=== PATIENT | female | born 1955 | race Caucasian/White ===

== ENCOUNTER 2017-09-27 11:16 | Emergency (ER) | payer OTHER ==
[~2017-09-27] VITALS: Ht 165.1 cm; Wt 90.7 kg
[~2017-09-27 11:16] MED LIST: ADULT LOW DOSE81 MG; ANASTROZOLE1 MG; BISOPROLOL FUMA1 TA3; CALCIUM1 TA1; FISH OIL 1,2001 EACH; FUROSEMIDE; IBUPROFEN200 M1; MULTI-VITAMIN1 EAC2; TAMOXIFEN CITRA; VENLAFAXINE HCL75 M1
--- OUTSIDE RECORDS SUMMARY | 2017-09-27 11:19 | External Medical Summary Rpt | CCD ---
Author Author [employer] Organization [employer] Address Unknown Phone Unavailable Purpose Continuity of Care Document - through 2016
--- OUTSIDE RECORDS SUMMARY | 2017-09-27 11:19 | External Medical Summary Rpt | CCD ---
Author Author , SHELLY Organization SHELLY Address Unknown Phone .[employer] Purpose Continuity of Care Document - 04-25-2017 through 2016 Results Labs Lab Lab Date Result Refere Interp Status Commen Order Detail nces retati t Range on Urinalysis dipstick W Reflex Microscopic panel in Urine (04-25-2017 08:30) Bacteri 3+ O complet a 017 ed [Presen 08:30 ce] in Urine sedimen t by Light microsc opy Erythro 04-25-2 5-10 0 complet cytes 017 ed [Presen 08:30 ce] in Urine sedimen t by Light microsc opy Epithel 04-25- 5-10 0#/hp complet ial 017 f - ed cells.s 08:30 5#/hp quamous f [Presen ce] in Urine sedimen t by Microsc opy high power field Leukocy 04-25- 5-10 O complet eddie 017 wbc/hpf ed [#/volu 08:30 me] in Urine Urinalysis dipstick W Reflex Microscopic panel in Urine (04-25-2017 08:30) Appeara CLEAR CLEAR complet nce of 017 ed Urine 08:30 Bilirub NEGATIV NEG complet in 017 E ed [Presen 08:30 ce] in Urine by Test strip Erythro 04-25-2 2+ NEG Abnorma complet cytes 017 l ed [Presen 08:30 ce] in Urine Color YELLOW YELLOW complet of 017 ed Urine 08:30 Ketones 2 NEGATIV NEG complet 017 E ed [Presen 08:30 ce] in Urine by Automat ed test strip Mucus 04-25-2 2+ NEG Abnorma complet [Presen 017 l ed ce] in 08:30 Urine sedimen t by Light microsc opy Nitrite NEGATIV NEG complet 017 E ed [Presen 08:30 ce] in Urine by Test strip Urobili 05-26-2 0.2 NEG complet nogen 017 ed [Presen 08:30 ce] in Urine by Test strip
--- OUTSIDE RECORDS SUMMARY | 2017-09-27 11:19 | External Medical Summary Rpt | CCD ---
Author Author , SHELLY Organization SHELLY Address Unknown Phone [email or web address] Purpose Continuity of Care Document - 04-25-2017 [...]
--- OUTSIDE RECORDS SUMMARY | 2017-09-27 11:20 | External Medical Summary Rpt | CCD ---
Demographics Preferred Language Macedonian Marital Status Unknown Judaism Affiliation Unknown Race Unknown Ethnic Group Unknown Author Author , SHELLY BRAVO Address Unknown Phone Immunization Unable to retrieve immunization data due to connection failure with Immunization Registry. Please try again later.
--- OUTSIDE RECORDS SUMMARY | 2017-09-27 11:20 | External Medical Summary Rpt | CCD ---
Demographics Preferred Language Polish Marital Status Unknown Congregation Affiliation Unknown Race Unknown Ethnic Group Unknown Author Author , SHELLY BRAVO Address Unknown Phone Immunization Unable to retrieve immunization data due to connection failure with Immunization Registry. Please try again later.
--- OUTSIDE RECORDS SUMMARY | 2017-09-27 11:21 | External Medical Summary Rpt ---
Author Author SHELLY Mendoza, [employer] Organization [employer] Address Unknown Phone Unavailable Results Urinalysis dipstick W Reflex Microscopic panel in Urine Observa Value Referen Units Interpr Notes Date tion ce etation Range Appeara CLEAR CLEAR No No No April 25 nce of informa informa informa 2016 Urine tion in tion in tion in 8:30 AM source source source data data data Bacteri 3+ O No No No April 25 a informa informa informa 2016 [Presen tion in tion in tion in 8:30 AM ce] in source source source Urine data data data sedimen t by Light microsc opy Bilirub NEGATIV NEG No No No April 25 in E informa informa informa 2016 [Presen tion in tion in tion in 8:30 AM ce] in source source source Urine data data data by Test strip Erythro 2+ NEG No Abnorma No April 25 cytes informa l informa 2016 [Presen tion in tion in 8:30 AM ce] in source source Urine data data Color YELLOW YELLOW No No No April 25 of informa informa informa 2016 Urine tion in tion in tion in 8:30 AM source source source data data data Glucose NEG No No No April 25 [Mass/vol informati informati informati 2016 8:30 ume] in on in on in on in AM Urine by source source source Test data data data strip Ketones NEGATIV NEG mg/dL No No April 25 E informa informa 2016 [Presen tion in tion in 8:30 AM ce] in source source Urine data data by Automat ed test strip Mucus 2+ NEG No Abnorma No April 25 [Presen informa l informa 2016 ce] in tion in tion in 8:30 AM Urine source source sedimen data data t by Light microsc opy Mucus 2+ OCC No No No April 25 [Presen informa informa informa 2016 ce] in tion in tion in tion in 8:30 AM Urine source source source sedimen data data data t by Light microsc opy Nitrite NEGATIV NEG No No No April 25 E informa informa informa 2016 [Presen tion in tion in tion in 8:30 AM ce] in source source source Urine data data data by Test strip pH of 5.0 - 8.5 No Normal No April 25 Urine informati informati 2016 8:30 on in on in AM source source data data Protein NEG mg/dL No No April 25 [Mass/vol informati informati 2016 8:30 ume] in on in on in AM Urine by source source Automated data data test strip Erythro 5-10 0 rbc/hpf No No April 25 cytes informa informa 2016 [Presen tion in tion in 8:30 AM ce] in source source Urine data data sedimen t by Light microsc opy Specific 1.005 - No Normal No April 25 gravity 1.030 informati informati 2016 8:30 of Urine on in on in AM source source data data Epithel 5-10 0 - 5 #/hpf No No April 25 ial informa informa 2016 cells.s tion in tion in 8:30 AM quamous source source data data [Presen ce] in Urine sedimen t by Microsc opy high power field Urobili 0.2 NEG E.U./dL No No April 25 nogen informa informa 2016 [Presen tion in tion in 8:30 AM ce] in source source Urine data data by Test strip Leukocy [5 O wbc/hpf No No April 25 eddie wbc/hpf informa informa 2016 [#/volu ; 10 tion in tion in 8:30 AM me] in wbc/hpf source source Urine ] data data Urinalysis dipstick W Reflex Microscopic panel in Urine Observa Value Referen Units Interpr Notes Date tion ce etation Range Appeara CLEAR CLEAR No No No April 25 nce of informa informa informa 2016 Urine tion in tion in tion in 8:30 AM source source source data data data Bilirub NEGATIV NEG No No No April 25 in E informa informa informa 2016 [Presen tion in tion in tion in 8:30 AM ce] in source source source Urine data data data by Test strip Erythro 2+ NEG No Abnorma No April 25 cytes informa l informa 2016 [Presen tion in tion in 8:30 AM ce] in source source Urine data data Color YELLOW YELLOW No No No April 25 of informa informa informa 2016 Urine tion in tion in tion in 8:30 AM source source source data data data Glucose NEG No No No April 25 [Mass/vol informati informati informati 2016 8:30 ume] in on in on in on in AM Urine by source source source Test data data data strip Ketones NEGATIV NEG mg/dL No No April 25 E informa informa 2016 [Presen tion in tion in 8:30 AM ce] in source source Urine data data by Automat ed test strip Mucus 2+ NEG No Abnorma No April 25 [Pres informa l informa 2016 ce] in tion in tion in 8:30 AM Urine source source sedimen data data t by Light microsc opy Nitrite NEGATIV NEG No No No April 25 E informa informa informa 2016 [Presen tion in tion in tion in 8:30 AM ce] in source source source Urine data data data by Test strip pH of 5.0 - 8.5 No Normal No April 25 Urine informati informati 2016 8:30 on in on in AM source source data data Protein NEG mg/dL No No April 25 [Mass/vol informati informati 2016 8:30 ume] in on in on in AM Urine by source source Automated data data test strip Specific 1.005 - No Normal No April 25 gravity 1.030 informati informati 2016 8:30 of Urine on in on in AM source source data data Urobili 0.2 NEG E.U./dL No No April 25 nogen informa informa 2016 [Presen tion in tion in 8:30 AM ce] in source source Urine data data by Test strip
[2017-09-27 11:36] VITALS: BP 143/73
[2017-09-27] MEDS ORDERED: ZITHROMAX Z-PA250 M2 PO (11:40)
[2017-09-27] MEDS ORDERED: FLONASE ALLERG9.9 ML NS (11:40)
--- NOTE | 2017-09-27 11:43 | Urgent Treatment Center Report ---
History of Present Issue Date/Time Seen by Provider 09/27/17 1134 Visit Reason Pt arrived:Walked Presenting Problem:PT C/O CHEST CONGESTION AND COUGH Location if Accident: Onset of symptoms date/time:/ or onset unknown for:MEDICAL HX UNKNOWN Have you (or family members/close friends) recently traveled outside the [place]? N If Yes, where/when: Have you had exposure to infectious disease within the past month? TB? Other? Specify: Source patient, RN notes reviewed Exam Limitations no limitations Comment 62-year-old female presents for green nasal congestion, sinus pressure, in coughing up green sputum. Patient states she's had a cold for over a week and she's been treatment with [id number] medicine and woke up this morning and in the color had changed to green and it feels like it has moved to her chest. ALLERGIES Coded Allergies: No Known Allergies (11/04/16) Home Medications Reported Medications Tamoxifen Citrate Venlafaxine Hydrochloride (Venlafaxine XR) Furosemide BISOPROLOL FUMARATE/HCTZ (Bisoprolol-Hctz 5-6.25 MG Tab) CALCIUM CARBONATE/VITAMIN D3 (Calcium + Vitamin D Tablet) Fish Oil/Dha/Epa (Fish Oil 1,200 MG Fish Oil) Aspirin (Adult Low Dose Aspirin EC) History Medical History General CAD? No Angina: No AL: No Hypertension? Yes Hyperlipidemia? Yes CHF? No DVT? No PE? No COPD? No Asthma? No Anemia? No GERD? No Gastric ulcers? No GI Bleed? No Hernia? No Thyroid Problems? No Hypothyroidism? No CVA? No Seizures? No Diabetes? No Renal Insuffiency? No UTI? No Stones? No BPH? No GB Disease: No Nephritic Syndrome? No Asplenia? No Hepatitis? No Sickle Cell Disease? No Arthritis? Yes Migraines? No Cataracts? Yes Glaucoma? No MRSA? No HIV? No TB? No Anxiety? No Depression? No Cancer? Yes More? No Immunization HX DT/Tetanus Unknown Surgical Hx Previous Surgery?Y CHOLECYSTECTOMY HYSTERECTOMY RIGHT/LEFT KNEE REPLACE LUMPECTOMY CARPAL TUNNEL MICRODISCECTOMY Family History Family HX Hypertension Yes Hyperlipidemia Yes Social History Smoking Hx Smoker: Never Smoker Tobacco: No Alcohol Alcohol: No Review of Systems All Other Systems Reviewed and Negative Constitutional denies no symptoms reported Eyes denies no symptoms reported ENT see HPI, nose discharge, nose congestion. Respiratory see HPI, cough Physical Exam Vital Signs Vital Signs Date Time Temp Pulse Resp B/P Pulse O2 O2 Flow FiO2 Ox Delivery Rate 09/27 1136 97.3 68 20 143/73 97 09/27 1129 97.3 68 20 143 97 - WBC >12,000 or <4,000 or 10% bands? 2 or more SIRS Criteria Met? B/P:143/73 MAP:96 Creatinine >2.0? UA output<0.5ml/kg/hr for 2 hrs? Platelet count >100,000? Lactate >2.0mmol/1? INR >1.2 or PTT > than 60 sec? Evidence of Organ Dysfunction? Provider documented clinical suspician of infection? Sepsis Criteria Count: 1 Sepsis Risk: General Appearance normal appearance, no apparent distress Eye Exam - bilateral eye normal exam, bilateral eye PERRL, bilateral eye EOMI Ear, Nose, Throat hearing grossly normal, sinus pain/drainage, nasal congestion, pharyngeal erythema Neck normal inspection, full range of motion Respiratory Status Yes: trachea midline, chest symmetrical, non tender chest. No: respiratory distress. Lung Sounds posterior: rhonchi. bilateral: normal breath sounds, lungs clear. left: normal breath sounds, lungs clear. right: rhonchi. Cardiovascular normal exam, regular rate/rhythm, no peripheral edema Peripheral Pulses Pulses normal Yes Neurologic alert, normal exam, oriented x 3 Medical Decision Making LABS/Meds/Orders Pt receiving controlled substance in ED? No Departure Departure Time of Disposition 1138 Disposition DC Home or Self Care(routine) Clinical Impression Primary Impression: ACUTE MAXILLARY SINUSITIS, UNSPECIFIED Condition STABLE Referrals Golden HARPER,Don Mckeon (Family): 2 Days-Call Office Patient Instructions Sinusitis Additional Instructions Medication as ordered Symptoms worsen or do not improve return or be seen in the ER Follow-up with primary care this week if no improvement Increase fluids, rest, Tylenol or ibuprofen as needed for comfort Discharge Counseling Counseled pt/family regarding diagnosis, medications/RX, home care, follow up needs Prescriptions Current Visit Scripts Fluticasone Propionate (Flonase Allergy Relief) 9.9 ML NS DAILY 14 Days Azithromycin (Zithromax) 250 MG PO DAILY #6 TAB USE DIRECTED. Comments Patient states she has taken a Z-Nakul well in the past at 1142
== END 2017-09-27 11:46 | disposition home or self-care (01) ==
LOC: UTC 11:16
DX: J01.00 Acute maxillary sinusitis, unspecified (principal); I10 Essential (primary) hypertension; Z79.82 Long term (current) use of aspirin